=== PATIENT | female | born 1965 | race Two or more races ===

== ENCOUNTER 2025-02-22 10:40 | Inpatient (IN) | payer MEDICARE, BC, SELFPAY ==
[2025-02-22] VITALS (21 sets, daily range): BP systolic 124–184; BP diastolic 67–99; PULSE 77–99; RESP 12–95; TEMP 36–36.6; O2SAT 96–100
--- NOTE | 2025-02-22 10:45 | PD.EDADULT ---
ED General RME/HPI General Stated complaint: AMS Time Seen by Provider: 02/22/25 10:45 Arrival date/time: 02/22/25 10:40 RME / HPI RME / HPI narrative: DR. BROWER MAIN ED EVALUATION: 59 year old female with past medical history significant for diabetes mellitus and end-stage renal disease on hemodialysis presents to the Emergency Department [facility] from home with complaint of a new onset altered mental status; goes from a GCS 11-12 through 14 per EMS. Per EMS, patient recently started a new medication yesterday, Gabapentin. Per EMS, blood glucose was 122. No further history at this time. Related Data Home Medications ?Medication ?Instructions ?Recorded ?Confirmed insulin glargine 100 unit/mL 25 unit SQ QAM ##10 02/18/17 03/26/20 subcutaneous solution (Lantus U-100 Insulin) bumetanide 2 mg tablet 2 mg PO BID 06/23/18 03/26/20 dulaglutide 1.5 mg/0.5 mL 1.5 mg subcut QWEEK 11/15/18 03/26/20 subcutaneous pen injector (Trulicity) gabapentin 300 mg capsule 300 mg PO BID 04/07/19 03/26/20 lisinopril 30 mg tablet 30 mg PO BID 06/16/19 03/26/20 lactulose 20 gram/30 mL oral 30 g PO BID 03/23/20 03/26/20 solution ropinirole 0.25 mg tablet (Requip) 0.5 mg PO QDAY 03/23/20 03/26/20 vitamin B complex-vitamin C-folic 1 tab PO QDAY 03/23/20 03/26/20 acid 0.8 mg tablet (Lyn-Timo) Previous Rx's ?Medication ?Instructions ?Recorded albuterol sulfate 90 mcg/actuation 2 puff inhalation Q6H PRN 04/07/20 aerosol inhaler shortness of breath or wheezing #6.7 grams aspirin 81 mg tablet,delayed 81 mg PO QDAY #30 tabs 04/07/20 release (Adult Low Dose Aspirin) hydralazine 25 mg tablet 25 mg PO TID #90 tabs 04/07/20 benzonatate 100 mg capsule 100 mg PO BID PRN cough #10 caps 07/02/21 (Tessalabhinav Delgadillo) amoxicillin 500 mg-potassium 1 tab PO BID #14 tabs 01/06/23 clavulanate 125 mg tablet (Augmentin) Allergies Allergy/AdvReac Type Severity Reaction Status Date / Time morphine Allergy Severe FACIAL Verified 02/22/25 10:48 SWELLING azithromycin Allergy Mild Rash Verified 02/22/25 10:48 adhesive tape Allergy Rash Verified 02/22/25 10:48 Review of Systems Review of Systems ROS Unobtainable: unobtainable due to mental status Past Medical History Past Medical History NEUROLOGIC: Positive Neurological Disorders, Peripheral Neuropathy and Head Trauma CARDIAC: Positive Cardiac Disorders, Edema and Hypertension RESPIRATORY: Positive Bronchitis and Pneumonia GASTROINTESTINAL: Positive Gastrointestinal Disorders and Obesity GENITOURINARY: Positive Genitourinary Disorders, Renal Disease and Dialysis REPRODUCTIVE: Positive Previous Pregnancies MUSCULOSKELETAL: Positive Musculoskeletal Disorders ENT: Positive Cataracts, Ear Infection and Head Trauma ENDOCRINE: Positive Endocrine Disorders and Diabetes Mellitus Type 2 HEMATOLOGIC: Positive Blood Disorders PSYCHO/SOCIAL: Positive Depression and Anxiety OTHER HISTORY: Positive Hospitalization, Shingles, Blood Transfusions and Chicken Pox Family History FAMILY HISTORY: Positive Family Cardiac Disorders, Family Gastrointestinal Problems and Family Surgery Surgical History SURGICAL: Positive Cardiac Surgery, Angiogram, Ear Surgery, Eye Surgery, Abdominal Surgery, Tubal Ligation and Section Social History SMOKING STATUS: Never smoker SUBSTANCE USE: does not use ALCOHOL: Never ED Exam Narrative Physical exam: GENERAL APPEARANCE: Anxious, generally well-appearing HEENT: NC, AT. MMM. EOMI, clear conjunctiva, oropharynx clear. NECK: Supple without lymphadenopathy. No stiffness or restricted ROM. HEART: Normal rate and regular rhythm, normal S1/S1, no m/r/g LUNGS: CTAB, moving air well. No crackles or wheezes are heard. ABDOMEN: Soft, nontender, nondistended with good bowel sounds heard. BACK: No midline C/T/L spine pain or deformity, No CVAT, no obvious deformity. EXTREMITIES: Without cyanosis, clubbing or edema. MUSCULOSKELETAL: FROM of all major joints, no chest tenderness NEUROLOGICAL: Grossly nonfocal. Moving all 4 extremities. CN not formally tested but appear grossly intact. Skin: Warm and dry without any rash. Course Quality Measures none Orders Category Date Time Status COVID-19 Screening Questionnaire NOW Care 02/22/25 12:26 Active Decision to Admit X1 Care 02/22/25 12:26 Active EKG (ED ONLY) *Do not use* NOW Care 02/22/25 10:46 Completed Insert IV NOW Care 02/22/25 10:[address] head/brain wo con Stat Exams 02/22/25 10:46 Completed EKG (ED Only) Stat Exams 02/22/25 10:46 Draft XR chest 1V Stat Exams 02/22/25 10:46 Completed CBC Stat Lab 02/22/25 10:43 Completed CMP [Comprehensive Metabolic Panel] Stat Lab 02/22/25 10:43 Completed Drug Screen,Urine Stat Lab 02/22/25 10:46 Ordered Lactate (Lactic Acid) Stat Lab 02/22/25 10:43 Completed Procalcitonin Stat Lab 02/22/25 10:43 Completed Urinalysis Stat Lab 02/22/25 10:46 Ordered LORazepam [Ativan Inj] Med 02/22/25 10:44 Discontinued 2 mg IVP X1 ONE Sodium Chloride 0.9% 1000 ml [Ns] 1,000 ml Med 02/22/25 10:45 Discontinued IV 999 mls/hr Discharge Plan Plan Patient Disposition: Admit Acute Care w/in Hospital Prescriptions/Referrals Prescriptions/Med Rec: No Action Lantus U-100 Insulin 100 U/ML solution 25 unit SQ QAM Qty: 10 Trulicity 1.5 mg/0.5 mL Pen Injector 1.5 mg SUBCUT QWEEK ropinirole [Requip] 0.25 mg Tablet 0.5 mg PO QDAY Lyn-Timo 0.8 mg Tablet 1 tab PO QDAY lactulose 20 gram/30 mL Solution 30 g PO BID benzonatate [Tessalon Perles] 100 mg capsule 100 mg PO BID PRN (Reason: cough) Qty: 10 0RF bumetanide 2 MG tablet 2 mg PO BID gabapentin 300 mg Capsule 300 mg PO BID lisinopril 30 mg Tablet 30 mg PO BID aspirin [Adult Low Dose Aspirin] 81 mg tablet,delayed release (DR/EC) 81 mg PO QDAY Qty: 30 0RF hydralazine 25 mg tablet 25 mg PO TID Qty: 90 0RF albuterol sulfate 90 mcg/actuation HFA aerosol inhaler 2 puff IH Q6H PRN (Reason: shortness of breath or wheezing) Qty: 6.7 0RF amoxicillin-pot clavulanate [Augmentin] 500-125 mg tablet 1 tab PO BID Qty: 14 0RF Referrals: Suraj Farias MD [Primary Care Provider] - In 1 week Problem List Clinical Impression: Toxic encephalopathy, Medication side effects Patient/Caregiver Discharge Instructions Print Language: Paraguayan Stand Alone Forms: Danielle Award Info., Patient Portal Info Letter MDM Narrative [facility] hospital course: I, Faith Leon, am scribing for and in the presence of Dr. Brower. Clinical Information Provided by patient and EMS Medical Records Reviewed EMS Meds/Rx Considered, not Ordered None Labs/Rad/Tests considered, not Ordered None Chronic Illness/Social Conditions Add or document further as needed: Diabetes mellitus, end-stage renal disease on hemodialysis. EKG Interpretation EKG #1: Date/time of EK02/22/25 1046 hours EKG interpretation: sinus rhythm, rate 88, widen QRS, left bundle branch block, no acute ST-T wave changes. Imaging Radiology reports / interpretation(s): Procedure(s): XR chest 1V Accession Number(s): [id number] cc: Peter Brower MD; Zeferino Houston MD~ Examination: AP chest single view Technique one AP portable upright chest single view Date and time: February 22, 2025 1118 hours Comparison August 18, 2022 INDICATIONS: Acute chest pain today. FINDINGS: Normal heart size Reduced inspiratory effort. Mild vascular congestion. No pulmonary edema or pneumonia. Moderate osteopenia IMPRESSION: Mild vascular congestion Dictated By: Zeferino Houston MD Procedure(s): CT head/brain wo con Accession Number(s): [id number] cc: Peter Brower MD; Zeferino Houston MD~ Examination: CT brain head without contrast. 2-D sagittal coronal reconstructions Date and time of exam:February 22, 2025 1059 hours Comparison February 05, 2020 CTDI: vol (mGy):56.2 DLP: (mGycm):1145 INDICATIONS: Altered mental status today Technique: Multiple CT axial sections of the brain have been obtained, 5 mm slice thickness. Contrast has not been administered. 2-D sagittal, coronal reconstructions have been obtained Low dose protocols were performed. One or more of the following dose reduction techniques were used; automated exposure control, adjustment of the mA and/or KV according to patient size, use of iterative reconstruction technique. Findings: No significant ventricular enlargement. Intra-axial or extra-axial hemorrhage density is not seen. No mass effect or midline shift Basal cisterns are not remarkable. Fourth ventricle is midline. Cranial vault intact. Significant right maxillary sinusitis Impression: Negative for acute hemorrhage, mass effect or midline shift Advise clinical correlation and follow-up accordingly Dictated By: Zeferino Houston MD Medication Administration(s) Medication Administration History Discontinued Medications Sodium Chloride (Ns) 1,000 mls @ 999 mls/hr IV .Q1H1M ONE Stop: 02/22/25 11:45 Last Infusion: 02/22/25 12:05 Dose: Infused Documented By: Admin: 02/22/25 11:00 Dose: 999 mls/hr Documented By: GM Lorazepam (Lorazepam 2 Mg/Ml Vial) 2 mg IVP X1 ONE Stop: 02/22/25 10:45 Last Admin: 02/22/25 10:51 Dose: 2 mg Documented By: JERMAINE Consultations/Discussions re: Management Consult #1: Date/time: 02/22/25 12:30 pm Physician, specialty, service, details: Discussed test HPI, PMHx, lab, radiology results and/or management with Dr. Farias. Will admit for further evaluation and management. Accepts patient for admission. Diagnosis Differential diagnosis: toxic encephalopathy, TIA, CVA Most likely dx, and/or detailed dx discussion: Toxic encephalopathy Medication side effect Dispositon Disposition: Admit
--- NOTE | 2025-02-22 10:46 | EKG_ITS ---
[facility] Test Date: 2025-02-22 Pat Name: OUMAR RUFF Department: Room: - Gender: Female Massotherapist: : 1965 Requested By: Peter De La Vega Order Number: [id number] Reading MD: Peter De La Vega Measurements Intervals [place] Rate: 88 P: 55 LA: 160 QRS: -19 QRSD: 137 T: 105 QT: 395 QTc: 479 Interpretive Statements SINUS RHYTHM LEFT BUNDLE BRANCH BLOCK [120+ ms QRS DURATION, 80+ ms Q/S IN V1/V2, 85+ ms R IN I/aVL/V5/V6] Compared to ECG 09/17/2022 12:23:04 Left bundle-branch block now present T-wave abnormality no longer present /store/S0/[id number]/ecg/[id number].pdf
[2025-02-22] MEDS: LORazepam 2 MG/ML VIAL IVP (10:51)
[2025-02-22 10:55] LABS: Lactate (Lactic Acid) 1.2 mMol/L (0.4-2.0)
[2025-02-22 10:57] LABS: Basophils % (Auto) 0 % (0-2.5); Eosinophils # (Auto) 0.1 Thou/mm3 (0.0-0.5); Eosinophils % (Auto) 1 % (0-10); Hematocrit 31.3 % (36.0-46.0); Hemoglobin 11.1 g/dL (12.0-16.0); Immature Granulocytes % (Auto) 1 % (0-0); Immature Granulocytes Auto 0.04 Thou/mm3 (0.00-0.00); Lymphocytes # (Auto) 1.4 Thou/mm3 (1.0-4.8); Lymphocytes % (Auto) 22 % (10-50); Mean Corpuscular HGB Conc 35.5 g/dl (31.0-37.0); Mean Corpuscular Hemoglobin 33.7 pg (25.0-35.0); Mean Corpuscular Volume 95 fL (80-100); Monocytes # (Auto) 0.4 Thou/mm3 (0.0-0.8); Monocytes % (Auto) 6 % (0-12); Neutrophils # (Auto) 4.3 Thou/mm3 (1.8-7.7); Neutrophils % (Auto) 70 % (37-80); Nucleated Red Blood Cell % 0 /100 WBC (0); Platelet Count 146 Thou/mm3 (140-440); RDW Standard Deviation 49.8 fL (36.4-46.3); Red Blood Count 3.29 Miln/mm3 (4.00-5.20); White Blood Count 6.1 Thou/mm3 (3.6-11.0)
[2025-02-22] MEDS: SODIUM CHLORIDE 0.9% 1000 ML 1,000 ML 999 ML IV (11:00)
[2025-02-22 11:38] LABS: Alanine Aminotransferase < 7 U/L (10-49); Albumin, Serum 4.1 gm/dL (3.4-4.8); Albumin/Globulin Ratio 1.4 (1.2-2.2); Alkaline Phosphatase 76 U/L (46-116); Anion Gap 16 (7-16); Aspartate Amino Transferase 10 U/L (0-34); BUN/Creatinine Ratio 7 Ratio (12-20); Bilirubin,Total 0.3 mg/dL (0.3-1.2); Blood Urea Nitrogen 43 mg/dL (9-23); Calcium 8.7 mg/dL (8.3-10.6); Calcium (Corrected) 8.7 mg/dL (8.5-10.1); Carbon Dioxide 26.2 mMol/L (20.0-31.0); Chloride 99 mMol/L (98-107); Creatinine (Component) 6.3 mg/dL (0.6-1.3); Glucose 119 mg/dL (74-106); Osmolality,Calculated 293 (275-295); Potassium 4.8 mMol/L (3.4-5.1); Procalcitonin 0.23 ng/ml (0.0-0.49); Sodium 141 mMol/L (136-145); Total Protein 7.1 gm/dL (5.7-8.2); eGFR 7 See Note
--- NOTE | 2025-02-22 12:55 | PD.RESHP ---
Documentation for date of: 02/22/25 HPI History of Present Illness Chief complaint: AMS History of present illness: Ms. Cotto is a 59-year-old female with a past medical history of diabetic nephropathy, ESRD on hemodialysis, T, S, hypertension hyperlipidemia and urinary osteodystrophy, who was brought into the emergency room after she was difficult to arouse this morning by her ., Per patient started a new medication baclofen, took half a pill before going to sleep, and was really hard to wake up in the morning. Patient was brought to the emergency room, ER was concerned that patient is likely having a seizure as she had subverted gaze and non responsive, and gave lorazepam 2 mg x 1. And IV fluids. At the time of evaluation, the patient is obtunded, GCS 8/15, currently able to protect her airway, no drooling noted, saturating 100% on 2 L of nasal cannula O2. Pupils 3mm, initial labs showed CBC within normal limits except mild anemia, Na 141 k 4.8, BUN 43 cr 6.3 consistent with ESRD, last HD session was on wednesday per schedule. LA 1.2 procal negative, UA pending, The pateint will admitted ti medical floor for urgent hemodialysis and further management. Review of Systems Review of Systems ROS Unobtainable: unobtainable due to mental status Past Medical History Past Medical History NEUROLOGIC: Positive Neurological Disorders, Peripheral Neuropathy and Head Trauma; Negative Cerebrovascular Accident, Transient Ischemic Attacks (TIA), Dementia, Alzheimer's Disease, Parkinson's Disease, Brain Tumor, Meningitis, Seizures, Epilepsy, Multiple Sclerosis, Cerebral Palsy, Amyotrophic Lateral Sclerosis (ALS/Ronna Gehrig's), Guillain-Harper Syndrome, Spina Bifida, Paralysis, Morton's Palsy, Subdural Hematoma, Migraine, Spinal Cord Injury or Traumatic Brain Injury CARDIAC: Positive Cardiac Disorders, Edema and Hypertension; Negative Angina, Heart Murmur, Hypercholesterolemia, Aneurysm, Congestive Heart Failure or Varicose Veins RESPIRATORY: Positive Bronchitis and Pneumonia; Negative Chronic Obstructive Pulmonary Disease (COPD), Asthma, Tuberculosis or Sleep Apnea GASTROINTESTINAL: Positive Gastrointestinal Disorders and Obesity; Negative Hepatitis, Cirrhosis, Gall Bladder Disease, Colitis, Diverticulitis, Irritable Bowel, Crohn's Disease, Obstructive Bowel, Hiatal Hernia, Hemorrhoids or Gastroesophageal Reflux Disease GENITOURINARY: Positive Genitourinary Disorders, Renal Disease and Dialysis REPRODUCTIVE: Positive Previous Pregnancies; Negative Breast Cancer MUSCULOSKELETAL: Positive Musculoskeletal Disorders; Negative Arthritis, Gout, Scoliosis, Carpal Tunnel Syndrome, Fibromyalgia, Degenerative Joint Disease, Osteomyelitis or Poliovirus ENT: Positive Cataracts, Ear Infection and Head Trauma; Negative Glaucoma or Macular Degeneration ENDOCRINE: Positive Endocrine Disorders and Diabetes Mellitus Type 2; Negative Diabetes Mellitus Type 1, Hyperthyroidism, Hypothyroidism, Parathyroid Disease, Systemic Lupus Erythematosus or Graves' Disease HEMATOLOGIC: Positive Blood Disorders; Negative Leukemia or Clotting Problems PSYCHO/SOCIAL: Positive Depression and Anxiety; Negative Attention Deficit Hyperactivity Disorder, Depression or Post Traumatic Stress Disorder OTHER HISTORY: Positive Hospitalization, Shingles, Blood Transfusions and Chicken Pox; Negative Autoimmune Disease, Falls, Blood Transfusion Reaction, Anesthesia Reactions, Organ Transplant, Chemotherapy, Radiation Therapy, MRSA, Measles, Mumps, Cancer or Breast Cancer Family History FAMILY HISTORY: Positive Family Cardiac Disorders, Family Gastrointestinal Problems and Family Surgery; Negative Family Psychiatric Problems, Family Respiratory Disorders, Family Cancer or Family Anesthesia Reaction Surgical History SURGICAL: Positive Cardiac Surgery, Angiogram, Ear Surgery, Eye Surgery, Abdominal Surgery, Tubal Ligation and Section; Negative Open Heart Surgery, Coronary Artery Bypass Graft, Valve Replacement, Thyroidectomy, Nose Surgery, Oral Surgery, Tonsillectomy, Throat Surgery, Gastric Bypass Surgery, Bowel Surgery, Nephrectomy, Joint Replacement, Amputation, Open Reduction Internal Fixation, Neurologic Surgery, Mastectomy, Lumpectomy, Hysterectomy or Organ Transplant Social History SMOKING STATUS: Never smoker SUBSTANCE USE: does not use Exam Narrative Exam General: AOx0, obtunded GCS 8/15, trace pedal edema and facial puffiness. Skin: Intact, no cyanosis or edema noted. HEENT: Atraumatic/normocephalic, DYLAN pupils 3mm, neck supple Heart: RRR, S1 and S2 without clicks or murmurs Lungs: Clear on auscultation bilaterally, no difficulty breathing Abdomen: Soft, nontender. Bowel sounds present . Vascular: Peripheral pulses palpable Neuro: No focal neurological deficits noted. Results: Labs 02/24/25 05:25 02/24/25 05:25 Labs: Short CBC 02/22/25 Range/Units 10:43 WBC 6.1 (3.6-11.0) Thou/mm3 Hgb 11.1 L (12.0-16.0) g/dL Hct 31.3 L (36.0-46.0) % Plt Count 146 (140-440) Thou/mm3 [facility] 02/22/25 10:43 Sodium 141 Potassium 4.8 Chloride 99 Carbon Dioxide 26.2 BUN 43 H Creatinine 6.3 H* Glucose 119 H Calcium 8.7 Liver Function 02/22/25 Range/Units 10:43 Total Bilirubin 0.3 (0.3-1.2) mg/dL AST 10 (0-34) U/L ALT < 7 L (10-49) U/L Alkaline Phosphatase 76 (46-116) U/L Albumin 4.1 (3.4-4.8) gm/dL Quality Measures Quality Measures none Medications Home Medications and Allergies Home Medications ?Medication ?Instructions ?Recorded ?Confirmed ?Type insulin glargine 100 unit/mL 25 unit SQ QAM ##10 02/18/17 02/22/25 History subcutaneous solution (Lantus U-100 Insulin) bumetanide 2 mg tablet 2 mg PO BID 06/23/18 02/22/25 History dulaglutide 1.5 mg/0.5 mL 1.5 mg subcut QWEEK 11/15/18 02/22/25 History subcutaneous pen injector (Trulicity) lisinopril 30 mg tablet 30 mg PO BID 06/16/19 02/22/25 History lactulose 20 gram/30 mL oral 30 g PO BID 03/23/20 02/22/25 History solution ropinirole 0.25 mg tablet (Requip) 0.5 mg PO QDAY 03/23/20 02/22/25 History vitamin B complex-vitamin C-folic 1 tab PO QDAY 03/23/20 02/22/25 History acid 0.8 mg tablet (Lyn-Timo) gabapentin 400 mg capsule 400 mg PO BID neuropathy 02/22/25 02/22/25 History Allergies Allergy/AdvReac Type Severity Reaction Status Date / Time morphine Allergy Severe FACIAL Verified 02/23/25 01:27 SWELLING baclofen Allergy Intermediate Confusion Verified 02/23/25 01:27 azithromycin Allergy Mild Rash Verified 02/23/25 01:27 adhesive tape Allergy Rash Verified 02/23/25 01:27 Visit Medications Discontinued Medications Sodium Chloride (Ns) 1,000 mls @ 999 mls/hr IV .Q1H1M ONE Stop: 02/22/25 11:45 Last Infusion: 02/22/25 12:05 Dose: Infused Lorazepam (Lorazepam 2 Mg/Ml Vial) 2 mg IVP X1 ONE Stop: 02/22/25 10:45 Last Admin: 02/22/25 10:51 Dose: 2 mg Assessment & Plan Problem List (1) Toxic encephalopathy: Qualifiers: Toxic encephalopathy cause: unspecified toxin Qualified Code(s): G92.9 - Unspecified toxic encephalopathy Status: Acute Assessment and plan: Acute toxic encephalopahty likely follwoing Baclofen, patient's reported she took half a pill of prescribed baclofen prior to sleep and wasnt able to wake up in the morning. Also unarousable on physical exam due to receiving Lorazepam 2mg for suspected seizure, though less likely given description of event. CT head negative for hemorrhage or mass effects - Urgent Hemodialysis ordered with 2L UF as baclofen is dialyzable. - will Consider MRI brain and neurology consult, if no improvement in mental status following HD - Hold off on further benzodiazepene pushes. - seizure precautions in place. Q4h neuro checks. (2) ESRD on dialysis: Status: Acute Assessment and plan: usual schedule TTS, ESRD likely secondary to Diabetic nephropathy. - Urgent Hemodialysis ordered with 2L UF as baclofen is dialyzable. (3) Diabetes mellitus with ESRD (end-stage renal disease): Status: Acute Assessment and plan: Sliding scale insulin q6h Glucose checks q6h diet once pt is mental status improves. (4) Hyperlipidemia: Qualifiers: Hyperlipidemia type: unspecified Qualified Code(s): E78.5 - Hyperlipidemia, unspecified Status: Acute Assessment and plan: continue home meds once able to take meds per oral (5) Congestive heart failure: Qualifiers: Heart failure chronicity: chronic Heart failure type: systolic Qualified Code(s): I50.22 - Chronic systolic (congestive) heart failure Status: Acute Assessment and plan: stable chronic chf, cxr showed mild vascular congestion, pt received 1 L fluid bolus in the ED. Hemodialysis with 2L ultrafiltrate, continue home meds once able to take meds per oral Plan Plan of care discussed with dr Jarrett Melgar pgy 2 Attending Provider Attestation/Addendum Patient seen and examined with resident physician Dr. Melgar. Note reviewed, agree with findings and recommendations. Patient admitted with baclofen side effects and altered mental status. Decided to proceed with dialysis. Patient currently seen on dialysis. Tolerating dialysis without any problems. Hemodialysis for 3 hours, 2K, ultrafiltration 2-3 L, Epogen 6000, no heparin ordered. Plan of care discussed with the dialysis nurse. Please see dialysis flowsheet for further details.
--- NOTE | 2025-02-22 14:20 | PC.NURSE ---
TAKEN TO DIALYSIS; STILL AWAITING ADMISSION ROOM.
--- NOTE | 2025-02-22 18:08 | PC.LAC ---
PATIENT RETURNED FROM DIALYSIS WITH 2.2 L REMOVED. BP 160/67, HR 87, ORAL TEMP 96.8, AND O2 SAT 99% 2L. PRESSURE DRESSING LEFT ARM NEEDS REMOVAL AT 2029.
--- NOTE | 2025-02-22 19:34 | PC.NURSE ---
Report given to Lucrecia DANIEL at [facility] via telephone
[2025-02-22 19:59] LABS: Hepatitis A Antibody IgM Non Reactive (Non React); Hepatitis B Core Antibody IgM Non Reactive (Non React); Hepatitis B Surface Ab Reactive (Immune) (Immune); Hepatitis B Surface Antigen Non Reactive (Non React); Hepatitis C Antibody Non Reactive (Non React)
--- NOTE | 2025-02-22 22:45 | PC.NURSE ---
2230 Pressure dressing removed from Left arm dialysis site
[2025-02-23] VITALS (8 sets, daily range): BP systolic 100–168; BP diastolic 65–89; PULSE 78–92; RESP 12–99; TEMP 36.1–36.4; O2SAT 100; BMI 38.5
--- NOTE | 2025-02-23 01:46 | PC.NURSE ---
Patient confused, crying, frequently trying to get out of bed [employer] camera states patient putting legs over rails trying to get up. 1:1 sitter placed at bedside
[2025-02-23] MEDS: ACETAMINOPHEN 325 MG TABLET 650 MG PO (02:03)
[2025-02-23] MEDS: HEPARIN SOD INJ 5000 UNIT/ML VIAL SC ×3 (05:16→21:00)
[2025-02-23 05:27] LABS: Basophils % (Auto) 0 % (0-2.5); Eosinophils # (Auto) 0.1 Thou/mm3 (0.0-0.5); Eosinophils % (Auto) 1 % (0-10); Hematocrit 31.5 % (36.0-46.0); Hemoglobin 10.8 g/dL (12.0-16.0); Immature Granulocytes % (Auto) 0 % (0-0); Immature Granulocytes Auto 0.01 Thou/mm3 (0.00-0.00); Lymphocytes # (Auto) 1.3 Thou/mm3 (1.0-4.8); Lymphocytes % (Auto) 19 % (10-50); Mean Corpuscular HGB Conc 34.3 g/dl (31.0-37.0); Mean Corpuscular Hemoglobin 32.8 pg (25.0-35.0); Mean Corpuscular Volume 96 fL (80-100); Monocytes # (Auto) 0.5 Thou/mm3 (0.0-0.8); Monocytes % (Auto) 7 % (0-12); Neutrophils % (Auto) 73 % (37-80); Nucleated Red Blood Cell % 0 /100 WBC (0); Platelet Count 160 Thou/mm3 (140-440); RDW Standard Deviation 49.6 fL (36.4-46.3); Red Blood Count 3.29 Miln/mm3 (4.00-5.20); White Blood Count 6.8 Thou/mm3 (3.6-11.0)
[2025-02-23 05:43] LABS: INR 1.1 (0.9-1.3); Prothrombin Time 11.6 Seconds (9.0-12.2)
[2025-02-23 05:55] LABS: Albumin, Serum 3.9 gm/dL (3.4-4.8); Anion Gap 13 (7-16); BUN/Creatinine Ratio 5 Ratio (12-20); Blood Urea Nitrogen 20 mg/dL (9-23); Calcium 8.9 mg/dL (8.3-10.6); Carbon Dioxide 30.6 mMol/L (20.0-31.0); Cardiac Risk Estimate 3.6 RATIO (3.7-5.6); Chloride 100 mMol/L (98-107); Cholesterol 173 mg/dL (132-200); Creatinine (Component) 3.7 mg/dL (0.6-1.3); Glucose 92 mg/dL (74-106); HDL Cholesterol 48 mg/dL (40-60); LDL Cholesterol,Calculated 91 mg/dL (0-130); Osmolality,Calculated 289 (275-295); Phosphorous 5.8 mg/dL (2.4-5.1); Potassium 3.8 mMol/L (3.4-5.1); Sodium 144 mMol/L (136-145); Thyroid Stimulating Hormone 1.24 uIU/mL (0.55-4.78); Triglycerides 170 mg/dL (30-150); eGFR 13 See Note
[2025-02-23] MEDS: ASPIRIN EC 81 MG TABEC PO (09:42)
[2025-02-23] MEDS: VIT B12/Vit C/FA (Nephrovite) TABLET 1 TAB PO (09:42)
[2025-02-23] MEDS: Lisinopril 20 MG TABLET 30 MG PO (09:43)
--- NOTE | 2025-02-23 09:53 | PC.SS ---
Patient Christy Cotto is a 59 Year old female admitted for Altered Mental Status. SS met with patient and patient's , Sylvester Cotto is surrogate decision maker [phone]. Patient reports she lives at home with who she reports is her surrogate decsion maker. Patient utilizes a wheelchair to assist with ambulation, patient required assistance completing ADL's. Patient get dialysis at [facility] on , Sat at 11AM. Patient utilizes 02 at home at 3L. PCP is Valery Ruelas. At time of discharge family will provide transportation. Discharge plan: Home Next of kin: , Sylvester Cotto
--- NOTE | 2025-02-23 11:57 | PD.RESPRO ---
Documentation for date of: 02/23/25 Subjective Subjective Interval history: Interval hx: The patient is a 59-year-old female with a past medical history of diabetic nephropathy, ESRD on hemodialysis, T, S, hypertension hyperlipidemia and urinary osteodystrophy, who was brought into the emergency room after she was difficult to arouse this morning by her ., Per patient started a new medication baclofen, took half a pill before going to sleep, and was really hard to wake up in the morning. Patient was brought to the emergency room, ER was concerned that patient is likely having a seizure as she had subverted gaze and non responsive, and gave lorazepam 2 mg x 1. And IV fluids. At the time of evaluation, the patient is obtunded, GCS 8/15, currently able to protect her airway, no drooling noted, saturating 100% on 2 L of nasal cannula O2. Pupils 3mm, initial labs showed CBC within normal limits except mild anemia, Na 141 k 4.8, BUN 43 cr 6.3 consistent with ESRD, last HD session was on wednesday per schedule. LA 1.2 procal negative, UA pending, The pateint will admitted ti medical floor for urgent hemodialysis and further management. 02/23/25 -patient evaluated bedside this morning, is alert and oriented x 3, eating her food, is able to move all 4 extremities, per at the bedside reported that patient's mental status began improving after hemodialysis last night, likely secondary to baclofen. Counseled regarding discontinuing baclofen. Still complains of twitching sensation in her eyes and subjective weakness in upper left arm, but is able to move both extremities, make a home assessment nurse and power is within normal limits. Noted improvement in BUN/creatinine, BUN 20, creatinine 3.7 improved from 6.3, will observe overnight, discharge tomorrow after hemodialysis. Exam Vital Signs Temp Pulse Resp BP Pulse Ox O2 Del Method O2 Flow Rate 96.9 F 91 19 153/79 H 100 Nasal Cannula 1 02/23/25 08:00 02/23/25 09:43 02/23/25 08:00 02/23/25 09:43 02/23/25 08:00 02/23/25 08:00 02/23/25 08:00 Narrative Exam General: A&O x 3, comfortable, sitting upright in bed, trace pedal edema and facial puffiness. Skin: Intact, no cyanosis or edema noted. HEENT: Atraumatic/normocephalic, DYLAN pupils 3mm, neck supple Heart: RRR, S1 and S2 without clicks or murmurs Lungs: Clear on auscultation bilaterally, no difficulty breathing Abdomen: Soft, nontender. Bowel sounds present . Vascular: Peripheral pulses palpable Neuro: No focal neurological deficits noted. Power bilateral upper extremities 5/5. Objective Labs 02/24/25 05:25 02/24/25 05:25 Labs: Laboratory Results - last 24 hr 02/22/25 02/23/25 10:43 04:56 WBC 6.8 RBC 3.29 L Hgb 10.8 L Hct 31.5 L MCV 96 MCH 32.8 MCHC 34.3 RDW Std Deviation 49.6 H Plt Count 160 Neut % (Auto) 73 Lymph % (Auto) 19 [place] % (Auto) 7 Eos % (Auto) 1 Baso % (Auto) 0 Neut # (Auto) 5.0 Lymph # (Auto) 1.3 [place] # (Auto) 0.5 Eos # (Auto) 0.1 Baso # (Auto) 0.0 Immature Gran # (Auto) 0.01 H Absolute Nucleated RBC 0.00 Immature Gran % 0 Nucleated RBC % 0 PT 11.6 INR 1.1 Sodium 144 Potassium 3.8 D Chloride 100 Carbon Dioxide 30.6 Anion Gap 13 BUN 20 Creatinine 3.7 H D Estim Creat Clear Calc Not Performed. eGFR 13 L* BUN/Creatinine Ratio 5 L Glucose 92 Calculated Osmolality 289 Calcium 8.9 Corrected Calcium 9.0 Phosphorus 5.8 H Magnesium 2.0 Albumin 3.9 Triglycerides 170 H Cholesterol 173 LDL Cholesterol, Calc 91 HDL Cholesterol 48 Cholesterol/HDL Ratio 3.6 L TSH 1.24 Hepatitis A IgM Ab Non Reactive Hep Bs Antigen Non Reactive Hep Bs Antibody Reactive (Immune) Hep B Core IgM Ab Non Reactive Hepatitis C Antibody Non Reactive Quality Measures Quality Measures none Assessment & Plan Assessment Current Active Medications: Generic Name Dose Route Start Last Admin Trade Name Freq PRN Reason Stop Dose Admin Acetaminophen 650 mg 02/22/25 13:18 02/23/25 02:03 Acetaminophen 325 Mg Tablet PO 03/24/25 13:17 650 mg Q6H PRN Administration PAIN OR FEVER > 101 Aspirin 81 mg 02/23/25 09:00 02/23/25 09:42 Aspirin Ec 81 Mg Tabec PO 03/25/25 08:59 81 mg QDAY PRISCILLA Administration Dextrose 25 ml 02/22/25 13:00 Dextrose 50%-Water Inj 50 Ml Syringe IV 03/24/25 12:59 Q15MIN PRN BG 50-70 responsive npo pt Dextrose 50 ml 02/22/25 13:00 Dextrose 50%-Water Inj 50 Ml Syringe IV 03/24/25 12:59 Q15MIN PRN BG <50 OR BG <70 & pt unresponsive Glucagon 1 mg 02/22/25 13:00 Glucagon Inj 1 Mg Vial IM Q15MIN PRN BG <70, and no IV access Heparin Sodium (Porcine) 5,000 unit 02/23/25 06:00 02/23/25 05:16 Heparin Sod Inj 5000 Unit/Ml Vial SC 03/09/25 05:59 5,000 unit Q8HR PRISCILLA Administration Insulin Human Lispro 0 unit 02/22/25 17:00 02/23/25 11:04 Insulin Lispro (Admelog) 1 Unit/0.01 Ml Unit SC 03/24/25 16:59 Not Given AC PRISCILLA Protocol Lisinopril 30 mg 02/23/25 09:00 02/23/25 09:43 Lisinopril 20 Mg Tablet PO 03/25/25 08:59 30 mg QDAY PRISCILLA Administration Protocol Ondansetron HCl 4 mg 02/22/25 13:18 Ondansetron Inj 2 Mg/Ml Inj 2 Ml IV 03/24/25 13:17 Q6H PRN NAUSEA OR VOMITING Protocol Sennosides 2 tab 02/22/25 13:18 Senna Tablet PO 03/24/25 13:17 BID PRN CONSTIPATION Protocol Vitamin B Complex/Vit C/Folic Acid 1 tab 02/23/25 09:00 02/23/25 09:42 Vit B12/Vit C/Fa (Nephrovite) Tablet PO 03/25/25 08:59 1 tab QDAY PRISCILLA Administration Additional Assessment: (1) Toxic encephalopathy: Resolved Status: Now resolved Assessment and plan: Acute toxic encephalopahty likely follwoing Baclofen, patient's reported she took half a pill of prescribed baclofen prior to sleep and wasnt able to wake up in the morning. Also unarousable on physical exam due to receiving Lorazepam 2mg for suspected seizure, though less likely given description of event. CT head negative for hemorrhage or mass effects - Remarkable improvement following hemodialysis, today patient's mental status is back to baseline. - Will observe overnight, discharge patient tomorrow following hemodialysis. - Will discontinue baclofen use on discharge. (2) ESRD on dialysis: Status: Chronic Assessment and plan: usual schedule TTS, ESRD likely secondary to Diabetic nephropathy. - Hemodialysis per schedule (3) Diabetes mellitus with ESRD (end-stage renal disease): Status: Acute Assessment and plan: Sliding scale insulin q6h Glucose checks q6h Renal diet (4) Hyperlipidemia: Qualifiers: Hyperlipidemia type: unspecified Qualified Code(s): E78.5 - Hyperlipidemia, unspecified Status: Acute Assessment and plan: continue home meds (5) Congestive heart failure: Qualifiers: Heart failure type: systolic Heart failure chronicity: chronic Qualified Code(s): I50.22 - Chronic systolic (congestive) heart failure Status: Acute Assessment and plan: stable chronic chf, cxr showed mild vascular congestion, pt received 1 L fluid bolus in the ED. Hemodialysis with 2L ultrafiltrate, continue home meds Plan Plan of care discussed with dr Jarrett Melgar pgy 2 Attending Provider Attestation/Addendum Patient seen and examined with resident physician Dr. Melgar. Note reviewed, agree with findings and recommendations. Patient admitted with baclofen side effects and altered mental status. Postdialysis she is feeling much better although still having some eye twitching. Will overnight observe her, dialysis in a.m. and postdialysis can be discharged.
--- NOTE | 2025-02-23 14:13 | PC.SS ---
SS follow up note; Patient will discharge home tomorrow after dialysis.
[2025-02-23] MEDS: GABAPENTIN 100 MG CAPSULE 400 MG PO ×2 (14:55→20:59)
[2025-02-23] MEDS: ONDANSETRON INJ 2 MG/ML INJ 2 ML 4 MG IV (15:06)
[2025-02-23] MEDS: INSULIN LISPRO (AdmeLOG) 1 UNIT/0.01 ML UNIT SC (17:41)
[2025-02-24] VITALS (28 sets, daily range): BP systolic 64–168; BP diastolic 41–90; PULSE 78–90; RESP 12–94; TEMP 35.9–36.4; O2SAT 97–100
[2025-02-24] MEDS: HEPARIN SOD INJ 5000 UNIT/ML VIAL SC (05:07)
[2025-02-24] MEDS: ACETAMINOPHEN 325 MG TABLET 650 MG PO (05:36)
[2025-02-24 05:45] LABS: Collection Type, Urine Clean Catch
[2025-02-24 06:01] LABS: Basophils % (Auto) 1 % (0-2.5); Eosinophils # (Auto) 0.2 Thou/mm3 (0.0-0.5); Eosinophils % (Auto) 3 % (0-10); Hemoglobin 10.5 g/dL (12.0-16.0); Immature Granulocytes % (Auto) 0 % (0-0); Immature Granulocytes Auto 0.01 Thou/mm3 (0.00-0.00); Lymphocytes % (Auto) 32 % (10-50); Mean Corpuscular Hemoglobin 33.4 pg (25.0-35.0); Mean Corpuscular Volume 96 fL (80-100); Monocytes # (Auto) 0.5 Thou/mm3 (0.0-0.8); Monocytes % (Auto) 8 % (0-12); Neutrophils # (Auto) 3.6 Thou/mm3 (1.8-7.7); Neutrophils % (Auto) 57 % (37-80); Nucleated Red Blood Cell % 0 /100 WBC (0); Platelet Count 152 Thou/mm3 (140-440); RDW Standard Deviation 49.4 fL (36.4-46.3); Red Blood Count 3.14 Miln/mm3 (4.00-5.20); White Blood Count 6.2 Thou/mm3 (3.6-11.0)
[2025-02-24 06:03] LABS: Bilirubin,Urine Negative (Negative); Blood,Urine 1+ (Negative); Clarity,Urine Turbid (Clear/Hazy); Color,Urine Yellow (Lt Yel-Yel); Glucose, Urine 1+ (Negative); Ketones,Urine Negative (Negative); Leukocyte Esterase,Urine Positive (Negative); Nitrite,Urine Positive (Negative); PH,Urine 8.5 (5.0-7.0); Protein,Urine 3+ (Neg - Trace); RBC,Urine 27 /hpf (0-3); Specific Gravity,Urine 1.013 (1.001-1.035); Squamous Epithelial Cell,Urine < 1 /hpf (0-5); Urobilinogen,Urine Negative mg/dL (0.0-1.0); WBC,Urine 28 /hpf (0-5)
[2025-02-24 06:44] LABS: Anion Gap 13 (7-16); BUN/Creatinine Ratio 7 Ratio (12-20); Blood Urea Nitrogen 41 mg/dL (9-23); Calcium 9.8 mg/dL (8.3-10.6); Calcium (Corrected) 9.8 mg/dL (8.5-10.1); Carbon Dioxide 28.8 mMol/L (20.0-31.0); Chloride 95 mMol/L (98-107); Creatinine (Component) 5.5 mg/dL (0.6-1.3); Estimated Creatinine Clearance 10.4 mL/min (>60); Glucose 104 mg/dL (74-106); Magnesium 2.2 mg/dL (1.6-2.6); Osmolality,Calculated 283 (275-295); Phosphorous 7.7 mg/dL (2.4-5.1); Sodium 137 mMol/L (136-145); eGFR 8 See Note
--- NOTE | 2025-02-24 08:24 | PD.RESDS ---
Planned Discharge Date 02/24/25 DS: Providers Provider Date of admission: 02/22/25 13:18 Primary care physician: Suraj Farias MD Admitting Provider: Suraj Farias MD Attending Provider on Admission: Suraj Farias MD Attending Provider on DC: Emory Melgar MD Discharging Provider: Emory Melgar MD DS: Diagnosis Problem List Completed Was Problem List Reviewed/Reconciled?: Yes Hospital Course Hospital Course Hospital course: The patient is a 59-year-old female with a past medical history of diabetic nephropathy, end-stage renal disease on hemodialysis, hypertension hyperlipidemia who was brought to the emergency room for altered mental status following baclofen intake the night before. Patient was started on new medication baclofen took half pill before going to sleep and was hard to wake up in the morning and also noted to be confused, patient was admitted to medical floor for emergent hemodialysis as baclofen is dialyzable, mental status improved following hemodialysis. Initial CT head showed no hemorrhage or midline shift. Patient's mental status is now back to baseline, alert and oriented x 3, no focal neurological deficits noted on physical exam. Urinalysis pertinent for UTI, will start patient on antibiotic cephalexin, dose adjusted for renal failure. The patient is stable, ambulatory, afebrile and tolerating Per oral medications at the time of discharge. The patient understood and agreed to the treatment plan. Problems: Acute toxic encephalopathy Urinary tract infection Diabetes mellitus Hypertension Hyperlipidemia Plan of care discussed with attending Dr. Jarrett Melgar PGy 2 Status at Discharge Cognitive/behavioral status at discharge: stable Functional status at discharge: independent ambulation Overall status at discharge: patient is progressing back to baseline Time Spent with Patient Time attestation: Total time spent providing and/or coordinating discharge services: Time spent: Greater than 30 minutes Exam Vital Signs Temp Pulse Resp BP Pulse Ox O2 Del Method O2 Flow Rate 97.2 F 78 12 151/75 H 100 Nasal Cannula 3 02/24/25 04:00 02/24/25 04:00 02/24/25 04:00 02/24/25 04:00 02/24/25 04:00 02/23/25 16:00 02/23/25 16:00 Narrative Exam General: A&O x 3, comfortable, sitting upright in bed, trace pedal edema and facial puffiness. Skin: Intact, no cyanosis or edema noted. HEENT: Atraumatic/normocephalic, DYLAN pupils 3mm, neck supple Heart: RRR, S1 and S2 without clicks or murmurs Lungs: Clear on auscultation bilaterally, no difficulty breathing Abdomen: Soft, nontender. Bowel sounds present . Vascular: Peripheral pulses palpable Neuro: No focal neurological deficits noted. Power bilateral upper extremities 5/5. Discharge Plan Plan Patient Disposition: HOME (Self Care) Disposition Comment: Please discharge after Dialysis Patient condition on transfer: Stable Care Plan Goals: Recommend to discontinue taking baclofen due to severe adverse events. You have been started on antibiotic cephalexin 250 mg once daily for 5 days for treatment of UTI. Follow up with Primary care physician with labs within 7 days of discharge. if symptoms persist or worsen, return to the Emergency Department. Prescriptions/Referrals Prescriptions/Med Rec: New cephalexin 250 mg capsule 250 mg PO QDAY Qty: 5 0RF Rx Instructions: Renal Dose adjusted Continued insulin glargine [Lantus U-100 Insulin] 100 U/ML solution 25 unit SQ QAM Qty: 10 Trulicity 1.5 mg/0.5 mL Pen Injector 1.5 mg SUBCUT QWEEK ropinirole [Requip] 0.25 mg Tablet 0.5 mg PO QDAY Lyn-Timo 0.8 mg Tablet 1 tab PO QDAY lactulose 20 gram/30 mL Solution 30 g PO BID benzonatate [Tessalon Perles] 100 mg capsule 100 mg PO BID PRN (Reason: cough) Qty: 10 0RF bumetanide 2 MG tablet 2 mg PO BID lisinopril 30 mg Tablet 30 mg PO BID aspirin [Adult Low Dose Aspirin] 81 mg tablet,delayed release (DR/EC) 81 mg PO QDAY Qty: 30 0RF hydralazine 25 mg tablet 25 mg PO TID Qty: 90 0RF albuterol sulfate 90 mcg/actuation HFA aerosol inhaler 2 puff IH Q6H PRN (Reason: shortness of breath or wheezing) Qty: 6.7 0RF gabapentin 400 mg capsule 400 mg PO BID Discontinued gabapentin 300 mg Capsule 300 mg PO BID baclofen 10 mg tablet 10 mg PO HS Referrals: Suraj Farias MD [Primary Care Provider] - Patient/Caregiver Discharge Instructions Discharge Activity: activity as tolerated Education Materials: CKD Dc Print Language: Portuguese Activity Restrictions/Additional Instructions: Follow-up with Dr. Farias in 1 to 2 weeks Stand Alone Forms: Danielle Award Info., Patient Portal Info Letter Discharge Order Discharge Orders: Discharge (Routine); Ordered 02/24/25 Ordered By: Emory Melgar Quality Discharge Quality Measures VTE prophylaxis MD Attestestation MD Attestation Patient seen and examined with resident physician Dr. Melgar. Note reviewed, agree with findings and recommendations. Patient admitted with baclofen side effects and altered mental status. Patient so far received 2 dialysis sessions and is back to normal. Will discharge patient today. Added baclofen to allergies Discontinue baclofen and gabapentin. Patient currently seen on dialysis. Tolerating dialysis without any problems. Hemodialysis for 3 hours, 2K, ultrafiltration 2-3 L, Epogen 6000, no heparin ordered. Plan of care discussed with the dialysis nurse. Please see dialysis flowsheet for further details. Postdialysis will be discharged.
[2025-02-24] MEDS: ALBUMIN HUMAN 25% IVPB 25 GM/100 ML BTL IV (09:30)
--- NOTE | 2025-02-24 09:31 | PC.NURSE ---
BP LOW WILL ADMIN PRN ALBUMIN AND CONT. TO MONITOR
--- NOTE | 2025-02-24 09:40 | PC.NURSE ---
BP REMIANS LOW DESPITE ALBUMIN ADMINISTRATION, 100ML NS BOLUS ADMINISTERED, PT REMAINS AAOX3 AND RECLINED WILL CONT. TO MONITOR
--- NOTE | 2025-02-24 09:46 | PC.NURSE ---
BP TRENDING UP,PT REMAINS W/O COMPLAINT, UF GOAL LOWERED TO 2L TOLERATED WILL CONT. TO MONITOR
[2025-02-24] MEDS: VIT B12/Vit C/FA (Nephrovite) TABLET 1 TAB PO (13:25)
[2025-02-24] MEDS: GABAPENTIN 100 MG CAPSULE 400 MG PO (13:25)
[2025-02-24] MEDS: ASPIRIN EC 81 MG TABEC PO (13:25)
[2025-02-24] MEDS: Lisinopril 20 MG TABLET 30 MG PO (13:25)
--- NOTE | 2025-02-24 15:50 | PC.NURSE ---
Pt and at bedside for discharge instructions. Verbalized understanding of dialysis care of not to take bp on fistula arm and when to remove bandage and bandaids. Verbalized undersanding of new prescription and how to take. Verbalized understanding of being careful when pivoting out of wheelchair at home. Verbalized feel safe and ready for discharge. Got patient up and patient able to get up from bed to chair. Pt stated that 3L oxygen is baseline at home on dialysis days and is saturating at 100 O2 on 3L NC. Verbalized have home oxygen and wheelchair at home. brought oxygen for car ride home. Verbalized able to black pickler new prescription on the way home.
== END 2025-02-24 16:02 | disposition home or self-care (01) | DRG 91 ==
LOC: SERX 12:44 → SERHOLD 13:52 → S2NX 20:43
PROVIDERS: Student in an Organized Health Care Education/Training Program; Admitting Provider Internal Medicine; Emergency Provider Emergency Medicine; PCP Internal Medicine; Visit Provider Internal Medicine
DX: G92.8 Other toxic encephalopathy (principal); N18.6 End stage renal disease; I50.22 Chronic systolic (congestive) heart failure; I13.2 Hypertensive heart and chronic kidney disease with heart failure and with stage 5 chronic kidney disease, or end stage renal disease; N39.0 Urinary tract infection, site not specified; E11.22 Type 2 diabetes mellitus with diabetic chronic kidney disease; E78.5 Hyperlipidemia, unspecified; I44.7 Left bundle-branch block, unspecified; D63.1 Anemia in chronic kidney disease; Z99.2 Dependence on renal dialysis; Z88.5 Allergy status to narcotic agent; Z88.1 Allergy status to other antibiotic agents; Z79.899 Other long term (current) drug therapy; T42.8X5A Adverse effect of antiparkinsonism drugs and other central muscle-tone depressants, initial encounter; R56.9 Unspecified convulsions
CPT/HCPCS: 36415; 70450; 71045; 80053; 80061; 80069; 80074; 80307; 81001; 83605; 83735; 84145; 84443; 85025; 85610; 86706; 87081; 93005; 96361; 96374; 99285; J1644; J1815; J2060; J2405; J7030; P9047; A9270